=== PATIENT | male | born 1970 | race Caucasian/White ===

== ENCOUNTER 2016-12-11 09:04 | Emergency (ER) | payer OTHER ==
[2016-12-11] MEDS ORDERED: DOCUSATE SODIUM 10 MG/ML SOLN.DROP ONE ×2 (09:35→09:49)
== END 2016-12-11 10:35 | disposition home or self-care (01) ==
LOC: ED 09:04
DX: H61.23 Impacted cerumen, bilateral (principal)
CPT/HCPCS: 99282 ×2; A9270 ×2